=== PATIENT | female | born 1995 | race Caucasian/White ===

== ENCOUNTER 2017-03-17 20:21 | Emergency (ER) | payer OTHER ==
[2017-03-17 20:34] VITALS: BP 107/74
--- NOTE | 2017-03-17 20:47 | EDM.PDOC ---
ED HPI GENERAL MEDICAL PROBLEM - General Chief Complaint: Bite:Animal, Insect Stated Complaint: DOG BITE LT HAND Time Seen by Provider: 03/17/17 20:40 Source of Information: Reports: Patient History Limitations: Reports: No Limitations - History of Present Illness INITIAL COMMENTS - FREE TEXT/NARRATIVE: HISTORY AND PHYSICAL: History of present illness: [Pt comes to the ER complaining of a dog bite to her L hand. A neighbor's dog approached her outside of her home. When she put her hand toward it, it bit her hand and tried to drag her. Police were contacted at the time this occurred. She presents to the ER for evaluation about one hour after this occurred. Tetanus is up-to-date. She does not know the immunization history for the dog. She denies any other complaints and concerns. ] Review of systems: As per history of present illness and below otherwise all systems reviewed and negative. Past medical history: As per history of present illness and as reviewed below otherwise noncontributory. Surgical history: As per history of present illness and as reviewed below otherwise noncontributory. Social history: No reported history of drug or alcohol abuse. Family history: As per history of present illness and as reviewed below otherwise noncontributory. Physical exam: HEENT: Atraumatic, normocephalic. Extremities: Puncture wound to base of middle finger of R hand, ventral aspect. Puncture wound just lateral to the finger nail of her R index finger. Is otherwise atraumatic in appearance. Neurovascular unremarkable. Neuro: Awake, alert, oriented. Motor and sensory unremarkable throughout. Exam nonfocal. Impression: [dog bite] Plan: [Wound is cleansed with hibiclens and normal saline. Hemostasis obtained. Wounds dressed w/ TED and bandaid. Rx written for Augmentin 875 mg #14 sig one by mouth twice a day 0 refills. Wound care instructions are discussed with the patient. Patient verbalized understanding.] Definitive disposition and diagnosis as appropriate pending reevaluation and review of above. Left 3-Middle finger Pain Score (Numeric/FACES): 1 Left 2-Index finger Pain Score (Numeric/FACES): 1 - Related Data Allergies Allergy/AdvReac Type Severity Reaction Status Date / Time No Known Allergies Allergy Verified 03/17/17 20:33 Home Meds: Home Meds . [No Known Home Meds] 03/17/17 [History] Past Medical History - Past Health History Medical/Surgical History: Denies Medical/Surgical History Endocrine/Metabolic History: Reports: Hypothyroidism - Past Surgical History Head Surgeries/Procedures: Reports: None Social & Family History - Tobacco Use Smoking Status *Q: Former Smoker - Recreational Drug Use Recreational Drug Use: No Drug Use in Last 12 Months: No ED ROS GENERAL - Review of Systems Review Of Systems: ROS reveals no pertinent complaints other than HPI. ED EXAM, ANIMAL BITE - Physical Exam Exam: See Below Course - Vital Signs Last Recorded V/S: Last Vital Signs Temp 98.6 F 03/17/17 20:28 Pulse 90 03/17/17 20:28 Resp 17 03/17/17 20:28 BP 107/74 03/17/17 20:28 Pulse Ox 98 03/17/17 20:28 - Orders/Labs/Meds Orders: Active Orders 24 hr Category Date Time Status Bacitracin/Neomycin/Polymyxin [Triple Antibiotic Oint] Med 03/17/17 21:11 Once 1 gm TOP ONETIME ONE Meds: Medications Discontinued Medications Generic Name Dose Route Start Last Admin Trade Name Freq PRN Reason Stop Dose Admin Neomycin/Polymyxin/Bacitracin 1 gm 03/17/17 21:11 Triple Antibiotic Oint TOP 03/17/17 21:12 ONETIME ONE Departure - Departure Time of Disposition: 21:15 Disposition: Home, Self-Care 01 Condition: Good Clinical Impression: Dog bite of hand - Discharge Information Referrals: PCP,None [Primary Care Provider] - Forms: ED Department Discharge Additional Instructions: The following information is given to patients seen in the emergency department who are being discharged to home. This information is to outline your options for follow-up care. We provide all patients seen in our emergency department with a follow-up referral. The need for follow-up, as well as the timing and circumstances, are variable depending upon the specifics of your emergency department visit. If you don't have a primary care physician on staff, we will provide you with a referral. We always advise you to contact your personal physician following an emergency department visit to inform them of the circumstance of the visit and for follow-up with them and/or the need for any referrals to a consulting specialist. The emergency department will also refer you to a specialist when appropriate. This referral assures that you have the opportunity for follow-up care with a specialist. All of these measure are taken in an effort to provide you with optimal care, which includes your follow-up. Under all circumstances we always encourage you to contact your private physician who remains a resource for coordinating your care. When calling for follow-up care, please make the office aware that this follow-up is from your recent emergency room visit. If for any reason you are refused follow-up, please contact the [facility] emergency department at and asked to speak to the emergency department charge nurse. [facility] [address] [place] [id number] Follow-up with your primary medical doctor in 48-72 hours. Take antibiotics as prescribed. Return to ER as needed as discussed. - My Orders Last 24 Hours: My Active Orders 03/17/17 21:11 Bacitracin/Neomycin/Polymyxin [Triple Antibiotic Oint] 1 gm TOP ONETIME ONE - Assessment/Plan Last 24 Hours: My Active Orders 03/17/17 21:11 Bacitracin/Neomycin/Polymyxin [Triple Antibiotic Oint] 1 gm TOP ONETIME ONE
[2017-03-17] MEDS ORDERED: Bacitracin/Neomycin/Polymyxin B Oint 28.4 GM Tube TOP ONE (21:11)
[2017-03-17] MEDS ORDERED: Bacitracin Oint 1 GM U/D Packet TOP ONE (21:16)
== END 2017-03-17 21:25 | disposition home or self-care (01) ==
LOC: MW.ED 20:21
DX: S61.253A Open bite of left middle finger without damage to nail, initial encounter (principal); S61.251A Open bite of left index finger without damage to nail, initial encounter; W54.0XXA Bitten by dog, initial encounter; Z87.891 Personal history of nicotine dependence
CPT/HCPCS: 99282; 99283

== ENCOUNTER 2018-06-02 21:05 | Emergency (ER) | payer OTHER ==
--- NOTE | 2018-06-02 21:33 | EDM.PDOC ---
ED HPI GENERAL MEDICAL PROBLEM - General Chief Complaint: Genitourinary Problem Stated Complaint: PT HAS VAGINA PAIN Time Seen by Provider: 06/02/18 21:22 - History of Present Illness INITIAL COMMENTS - FREE TEXT/NARRATIVE: HISTORY AND PHYSICAL: History of present illness: Patient is a 22-year-old white female who presents with concern of pelvic pain that came on somewhat acutely she is on her period and does have history of dysmenorrhea but states this is different she is concerned about possible complication of her Mirena.Problems with this prior and has no concerns about sexually transmitted diseases nor has had any. She denies urinary tract signs or symptoms. Review of systems: As per history of present illness and below otherwise all systems reviewed and negative. Past medical history: As per history of present illness and as reviewed below otherwise noncontributory. Surgical history: As per history of present illness and as reviewed below otherwise noncontributory. Social history: No reported history of drug or alcohol abuse. Family history: As per history of present illness and as reviewed below otherwise noncontributory. Physical exam: HEENT: Atraumatic, normocephalic, pupils reactive, negative for conjunctival pallor or scleral icterus, mucous membranes moist, throat clear, neck supple, nontender, trachea midline. Lungs: Clear to auscultation, breath sounds equal bilaterally, chest nontender. Heart: S1S2, regular, negative for clicks, rubs, or JVD. Abdomen: Soft, nondistended, nonlocalized lower tenderness.. Negative for masses or hepatosplenomegaly. Negative for costovertebral tenderness. Pelvis: Stable nontender. Genitourinary: Deferred. Rectal: Deferred. Extremities: Atraumatic, negative for cords or calf pain. Neurovascular unremarkable. Neuro: Awake, alert, oriented. Cranial nerves II through XII unremarkable. Cerebellum unremarkable. Motor and sensory unremarkable throughout. Exam nonfocal. Diagnostics: CBC CMP hCG pelvic ultrasound Therapeutics: None Impression: #1 acute pelvic pain #2 history of dysmenorrhea Definitive disposition and diagnosis as appropriate pending reevaluation and review of above. abdominal Pain Score (Numeric/FACES): 9 - Related Data Allergies Allergy/AdvReac Type Severity Reaction Status Date / Time No Known Allergies Allergy Verified 06/02/18 21:24 Home Meds: Home Meds . [No Known Home Meds] 03/17/17 [History] Past Medical History - Past Health History Medical/Surgical History: Denies Medical/Surgical History HEENT History: Reports: None [employer] History: Reports: Other (See Below) Other [employer] History: with IUD x 2 years Psychiatric History: Reports: Anxiety Endocrine/Metabolic History: Reports: Hypothyroidism Other Endocrine/Metabolic History: supposed to be on medication for hypothyroidism but pt states she's not taking it - Past Surgical History Head Surgeries/Procedures: Reports: None HEENT Surgical History: Reports: Tonsillectomy Social & Family History - Family History Family Medical History: Noncontributory - Tobacco Use Smoking Status *Q: Never Smoker Second Hand Smoke Exposure: No - Caffeine Use Caffeine Use: Reports: Energy Drinks - Recreational Drug Use Recreational Drug Use: No ED ROS GENERAL - Review of Systems Review Of Systems: ROS reveals no pertinent complaints other than HPI. ED EXAM, GENERAL - Physical Exam Exam: See Below (See dictation) Course - Vital Signs Last Recorded V/S: Last Vital Signs Temp 37.2 C 06/02/18 21:12 Pulse 114 H 06/02/18 21:12 Resp 18 06/02/18 21:12 BP 119/80 06/02/18 21:12 Pulse Ox 95 06/02/18 21:12 - Orders/Labs/Meds Labs: Laboratory Tests 06/02/18 06/02/18 06/02/18 Range/Units 21:30 21:30 21:35 WBC 8.55 (4.0-11.0) K/uL RBC 4.55 (4.30-5.90) M/uL Hgb 13.5 (12.0-16.0) g/dL Hct 40.0 (36.0-46.0) % MCV 87.9 (80.0-98.0) fL MCH 29.7 (27.0-32.0) pg MCHC 33.8 (31.0-37.0) g/dL RDW Std Deviation 41.7 (28.0-62.0) fl RDW Coeff of Edwardo 13 (11.0-15.0) % Plt Count 206 (150-400) K/uL MPV 10.70 (7.40-12.00) fL Neut % (Auto) 58.2 (48.0-80.0) % Lymph % (Auto) 33.8 (16.0-40.0) % Sheridan % (Auto) 6.8 (0.0-15.0) % Eos % (Auto) 0.8 (0.0-7.0) % Baso % (Auto) 0.4 (0.0-1.5) % Neut # (Auto) 5.0 (1.4-5.7) K/uL Lymph # (Auto) 2.9 H (0.6-2.4) K/uL Sheridan # (Auto) 0.6 (0.0-0.8) K/uL Eos # (Auto) 0.1 (0.0-0.7) K/uL Baso # (Auto) 0.0 (0.0-0.1) K/uL Nucleated RBC % 0.0 /100WBC Nucleated RBCs # 0 K/uL Sodium (136-145) mmol/L Potassium (3.5-5.1) mmol/L Chloride (98-107) mmol/L Carbon Dioxide (21.0-32.0) mmol/L BUN (7.0-18.0) mg/dL Creatinine (0.6-1.0) mg/dL Est Cr Clr Drug Dosing mL/min Estimated GFR (MDRD) ml/min Glucose (74-106) mg/dL Calcium (8.5-10.1) mg/dL Total Bilirubin (0.2-1.0) mg/dL AST (15-37) IU/L ALT (14-63) IU/L Alkaline Phosphatase (46-116) U/L Total Protein (6.4-8.2) g/dL Albumin (3.4-5.0) g/dL Globulin (2.6-4.0) g/dL Albumin/Globulin Ratio (0.9-1.6) Urine Color YELLOW Urine Appearance HAZY Urine pH 5.0 (5.0-8.0) Ur Specific Edwards >= 1.030 (1.001-1.035) Urine Protein NEGATIVE (NEGATIVE) mg/dL Urine Glucose (UA) NEGATIVE (NEGATIVE) mg/dL Urine Ketones NEGATIVE (NEGATIVE) mg/dL Urine Occult Blood NEGATIVE (NEGATIVE) Urine Nitrite POSITIVE H (NEGATIVE) Urine Bilirubin NEGATIVE (NEGATIVE) Urine Urobilinogen 0.2 (<2.0) EU/dL Ur Leukocyte Esterase NEGATIVE (NEGATIVE) Urine RBC 0-3 (0-2/HPF) Urine WBC 6-8 (0-5/HPF) Ur Epithelial Cells MODERATE (NONE-FEW) Urine Bacteria 2+ H (NEGATIVE) Urine Mucus LIGHT (NONE-MOD) Urine HCG, Qual NEGATIVE (NEGATIVE) 06/02/18 Range/Units 21:35 WBC (4.0-11.0) K/uL RBC (4.30-5.90) M/uL Hgb (12.0-16.0) g/dL Hct (36.0-46.0) % MCV (80.0-98.0) fL MCH (27.0-32.0) pg MCHC (31.0-37.0) g/dL RDW Std Deviation (28.0-62.0) fl RDW Coeff of Edwardo (11.0-15.0) % Plt Count (150-400) K/uL MPV (7.40-12.00) fL Neut % (Auto) (48.0-80.0) % Lymph % (Auto) (16.0-40.0) % Sheridan % (Auto) (0.0-15.0) % Eos % (Auto) (0.0-7.0) % Baso % (Auto) (0.0-1.5) % Neut # (Auto) (1.4-5.7) K/uL Lymph # (Auto) (0.6-2.4) K/uL Sheridan # (Auto) (0.0-0.8) K/uL Eos # (Auto) (0.0-0.7) K/uL Baso # (Auto) (0.0-0.1) K/uL Nucleated RBC % /100WBC Nucleated RBCs # K/uL Sodium 142 (136-145) mmol/L Potassium 3.6 (3.5-5.1) mmol/L Chloride 106 (98-107) mmol/L Carbon Dioxide 27.4 (21.0-32.0) mmol/L BUN 12 (7.0-18.0) mg/dL Creatinine 0.9 (0.6-1.0) mg/dL Est Cr Clr Drug Dosing 75.24 mL/min Estimated GFR (MDRD) > 60.0 ml/min Glucose 102 (74-106) mg/dL Calcium 9.8 (8.5-10.1) mg/dL Total Bilirubin 0.3 (0.2-1.0) mg/dL AST 17 (15-37) IU/L ALT 18 (14-63) IU/L Alkaline Phosphatase 89 (46-116) U/L Total Protein 7.7 (6.4-8.2) g/dL Albumin 4.4 (3.4-5.0) g/dL Globulin 3.3 (2.6-4.0) g/dL Albumin/Globulin Ratio 1.3 (0.9-1.6) Urine Color Urine Appearance Urine pH (5.0-8.0) Ur Specific Edwards (1.001-1.035) Urine Protein (NEGATIVE) mg/dL Urine Glucose (UA) (NEGATIVE) mg/dL Urine Ketones (NEGATIVE) mg/dL Urine Occult Blood (NEGATIVE) Urine Nitrite (NEGATIVE) Urine Bilirubin (NEGATIVE) Urine Urobilinogen (<2.0) EU/dL Ur Leukocyte Esterase (NEGATIVE) Urine RBC (0-2/HPF) Urine WBC (0-5/HPF) Ur Epithelial Cells (NONE-FEW) Urine Bacteria (NEGATIVE) Urine Mucus (NONE-MOD) Urine HCG, Qual (NEGATIVE) Meds: Medications Discontinued Medications Generic Name Dose Route Start Last Admin Trade Name Chaoq PRN Reason Stop Dose Admin Ketorolac Tromethamine 60 mg 06/02/18 21:40 06/02/18 22:10 Toradol IM 06/02/18 21:41 60 mg ONETIME ONE Administration Departure - Departure Time of Disposition: 23:36 Disposition: Home, Self-Care 01 Condition: Good Clinical Impression: UTI, Urinary tract infectious disease, Cyst of ovary - Discharge Information Referrals: PCP,None [Primary Care Provider] - Forms: ED Department Discharge Additional Instructions: The following information is given to patients seen in the emergency department who are being discharged to home. This information is to outline your options for follow-up care. We provide all patients seen in our emergency department with a follow-up referral. The need for follow-up, as well as the timing and circumstances, are variable depending upon the specifics of your emergency department visit. If you don't have a primary care physician on staff, we will provide you with a referral. We always advise you to contact your personal physician following an emergency department visit to inform them of the circumstance of the visit and for follow-up with them and/or the need for any referrals to a consulting specialist. The emergency department will also refer you to a specialist when appropriate. This referral assures that you have the opportunity for followup care with a specialist. All of these measure are taken in an effort to provide you with optimal care, which includes your followup. Under all circumstances we always encourage you to contact your private physician who remains a resource for coordinating your care. When calling for followup care, please make the office aware that this follow-up is from your recent emergency room visit. If for any reason you are refused follow-up, please contact the [facility] emergency department at and asked to speak to the emergency department charge nurse. [facility] - Women's Health [address] [place] [phone] Hydrocodone Cipro as prescribed follow-up women's health above called scheduled appointment return as needed as discussed
[2018-06-02] MEDS ORDERED: Ketorolac 60 MG/2 ML SDV IM ONE (21:40)
[2018-06-02 22:09] LABS: CHLORIDE,CL 106 mmol/L (98-107); SODIUM,NA 142 mmol/L (136-145)
--- NOTE | 2018-06-02 23:30 | US ---
INDICATION: Lower abdominal pain TECHNIQUE: Ultrasound pelvis transabdominal and transvaginal for better assessment or to better visualize the endometrium. Real-time sonographic images with spectral and color Doppler imaging of the ovaries were obtained. COMPARISON: None FINDINGS: Uterus: 7.4 x 5.6 x 3.3 cm. Normal echotexture of the myometrium. No masses. Endometrium: Transvaginal imaging was performed to better evaluate the endometrium. There is an IUD within the uterus that appears appropriate in position. 3.5 mm in thickness. No sign of endometrial mass or fluid. Right ovary: 5.6 x 3.7 x 6.9 cm. Complex lesion on the right ovary measuring 6.5 x 3.4 by 4.5 cm. Normal arterial and venous blood flow. Left ovary: 2.9 x 1.8 x 2.0 cm. No ovarian or adnexal masses. Normal arterial and venous blood flow. Cul-de-sac: Small free fluid in the cul de sac and bilateral adnexa. IMPRESSION: No ovarian torsion. Complex lesion on the right ovary measuring greater than 6 cm in diameter. This likely represents a hemorrhagic cyst. A follow-up ultrasound in 5 weeks is recommended to assure resolution. Small free fluid in the cul de sac and bilateral adnexal may be physiologic. Dictated by Julieth Carranza MD @ Jun 02 2018 11:28PM Signed by Dr. Julieth Carranza @ Jun 02 2018 11:28PM
[2018-06-02 23:38] VITALS: BP 119/71
== END 2018-06-02 23:44 | disposition home or self-care (01) ==
LOC: MW.ED 21:05
DX: N39.0 Urinary tract infection, site not specified (principal); N83.201 Unspecified ovarian cyst, right side
CPT/HCPCS: 36415; 76856; 80053; 81001; 81025; 85025; 96372; 99284; J1885

== ENCOUNTER 2020-04-11 22:12 | Emergency (ER) | payer OTHER ==
--- NOTE | 2020-04-11 22:46 | EDM.PDOC ---
ED HPI GENERAL MEDICAL PROBLEM - General Chief Complaint: NEUROLOGY PHYSICIAN Problem Stated Complaint: OVARIAN CYST Time Seen by Provider: 04/11/20 22:39 - History of Present Illness INITIAL COMMENTS - FREE TEXT/NARRATIVE: History of present illness: [] 4-year-old female has gradual insidious onset of abdominal pain starting its ago. Tonight she was drinking alcohol and she suddenly had a worsening of her pain which is sharp and severe in the left lower quadrant. It is associated with whitish discharge that started yesterday. She does not have any other associated symptoms and the pain is worse when she moves. She prefers to sit up and lean forward to try to alleviate the pain. Review of systems: As per history of present illness and below otherwise all systems reviewed and negative. Past medical history: As per history of present illness and as reviewed below otherwise noncontributory. Surgical history: As per history of present illness and as reviewed below otherwise noncontributory. Social history: No reported history of drug or alcohol abuse. Family history: As per history of present illness and as reviewed below otherwise noncontributory. Physical exam: Constitutional - well developed, well-nourished and in no acute distress HEENT - normocephalic, no evidence of trauma - external nose and mouth normal - no mass in neck and no JVD - mucosae moist EYES - full EOM, PERRL, no icterus - no evidence of inflammation, injection, or drainage Respiratory - no respiratory distress, equal bilateral expansion, lungs clear to auscultation and no abnormal lung sounds Cardiovascular - Regular Rhythm with S1 and S2 appreciated and no murmur, gallop or rub. GI - abdomen soft without distension or organomegaly - normal bowel sounds - no guard or rebound -tender left lower quadrant in the extreme lower quadrant near the pelvis. exam-BUS normal-bimanual exam there is tenderness in both adnexa and there is cervical motion tenderness. There is a caseous white discharge. Musculoskeletal no gross deformity of long bones or joints - no tenderness, swelling or edema Neurologic - Alert and oriented times four - CN II-XII grossly intact - motor sensory and coordination symmetrically normal Psychiatric - appropriate mood and affect with normal thought content Hematologic - No petechiae or purpura - mucosa appropriate color and sclera not pale - normal nail bed color and refill Integument - no rash or evidence of trauma - normal turgor Diagnostics: [] Therapeutics: [] Impression: [] Plan: [] Definitive disposition and diagnosis as appropriate pending reevaluation and review of above. abdominal Pain Score (Numeric/FACES): 8 - Related Data Allergies Allergy/AdvReac Type Severity Reaction Status Date / Time No Known Allergies Allergy Verified 04/11/20 22:38 Home Meds: Home Meds Azithromycin [Zithromax] 1 gm PO DAILY #1 packet 04/12/20 [Rx] Past Medical History - Past Health History Medical/Surgical History: Denies Medical/Surgical History HEENT History: Reports: None NEUROLOGY PHYSICIAN History: Reports: Other (See Below) Other NEUROLOGY PHYSICIAN History: with IUD x 2 years Psychiatric History: Reports: Anxiety Endocrine/Metabolic History: Reports: Hypothyroidism Other Endocrine/Metabolic History: supposed to be on medication for hypothyroidism but pt states she's not taking it - Past Surgical History Head Surgeries/Procedures: Reports: None HEENT Surgical History: Reports: Tonsillectomy Social & Family History - Family History Family Medical History: No Pertinent Family History - Caffeine Use Caffeine Use: Reports: Energy Drinks ED ROS GENERAL - Review of Systems Review Of Systems: Comprehensive ROS is negative, except as noted in HPI. ED EXAM, GENERAL - Physical Exam Exam: See Below Free Text/Narrative:: My physical exam is in the HPI Course - Vital Signs Text/Narrative:: 12:24 the patient is completely better after ketorolac and antibiotics. Last Recorded V/S: Last Vital Signs Temp 36.1 C 04/11/20 22:31 Pulse 121 H 04/11/20 22:31 Resp 16 04/11/20 22:31 BP 126/81 04/11/20 22:31 Pulse Ox 96 04/11/20 22:31 - Orders/Labs/Meds Orders: Active Orders 24 hr Category Date Time Status CHLAMYDIA AND GONORRHEA BY [facility] Stat Lab 04/11/20 23:01 Received Labs: Laboratory Tests 04/11/20 04/11/20 04/11/20 Range/Units 22:39 22:39 23:01 WBC (4.0-11.0) K/uL RBC (4.30-5.90) M/uL Hgb (12.0-16.0) g/dL Hct (36.0-46.0) % MCV (80.0-98.0) fL MCH (27.0-32.0) pg MCHC (31.0-37.0) g/dL RDW Std Deviation (28.0-62.0) fl RDW Coeff of Edwardo (11.0-15.0) % Plt Count (150-400) K/uL MPV (7.40-12.00) fL Neut % (Auto) (48.0-80.0) % Lymph % (Auto) (16.0-40.0) % Upson % (Auto) (0.0-15.0) % Eos % (Auto) (0.0-7.0) % Baso % (Auto) (0.0-1.5) % Neut # (Auto) (1.4-5.7) K/uL Lymph # (Auto) (0.6-2.4) K/uL Upson # (Auto) (0.0-0.8) K/uL Eos # (Auto) (0.0-0.7) K/uL Baso # (Auto) (0.0-0.1) K/uL Nucleated RBC % /100WBC Nucleated RBCs # K/uL Sodium (136-145) mmol/L Potassium (3.5-5.1) mmol/L Chloride (98-107) mmol/L Carbon Dioxide (21.0-32.0) mmol/L BUN (7.0-18.0) mg/dL Creatinine (0.6-1.0) mg/dL Est Cr Clr Drug Dosing mL/min Estimated GFR (MDRD) ml/min Glucose (74-106) mg/dL Calcium (8.5-10.1) mg/dL Total Bilirubin (0.2-1.0) mg/dL AST (15-37) IU/L ALT (14-63) IU/L Alkaline Phosphatase (46-116) U/L Total Protein (6.4-8.2) g/dL Albumin (3.4-5.0) g/dL Globulin (2.6-4.0) g/dL Albumin/Globulin Ratio (0.9-1.6) Lipase (73-393) U/L Urine Color COLORLESS Urine Appearance CLEAR Urine pH 5.0 (5.0-8.0) Ur Specific [place] <= 1.005 (1.001-1.035) Urine Protein NEGATIVE (NEGATIVE) mg/dL Urine Glucose (UA) NEGATIVE (NEGATIVE) mg/dL Urine Ketones NEGATIVE (NEGATIVE) mg/dL Urine Occult Blood NEGATIVE (NEGATIVE) Urine Nitrite NEGATIVE (NEGATIVE) Urine Bilirubin NEGATIVE (NEGATIVE) Urine Urobilinogen 0.2 (<2.0) EU/dL Ur Leukocyte Esterase NEGATIVE (NEGATIVE) Urine HCG, Qual NEGATIVE (NEGATIVE) [place] species DNA NEGATIVE (NEGATIVE) Gardnerella DNA Probe NEGATIVE (NEGATIVE) Trichomonas DNA Probe NEGATIVE (NEGATIVE) 04/11/20 04/11/20 Range/Units 23:04 23:04 WBC 6.58 (4.0-11.0) K/uL RBC 4.58 (4.30-5.90) M/uL Hgb 13.7 (12.0-16.0) g/dL Hct 41.5 (36.0-46.0) % MCV 90.6 (80.0-98.0) fL MCH 29.9 (27.0-32.0) pg MCHC 33.0 (31.0-37.0) g/dL RDW Std Deviation 43.0 (28.0-62.0) fl RDW Coeff of Edwardo 13 (11.0-15.0) % Plt Count 195 (150-400) K/uL MPV 10.90 (7.40-12.00) fL Neut % (Auto) 67.9 (48.0-80.0) % Lymph % (Auto) 24.9 (16.0-40.0) % Upson % (Auto) 5.9 (0.0-15.0) % Eos % (Auto) 0.8 (0.0-7.0) % Baso % (Auto) 0.5 (0.0-1.5) % Neut # (Auto) 4.5 (1.4-5.7) K/uL Lymph # (Auto) 1.6 (0.6-2.4) K/uL Upson # (Auto) 0.4 (0.0-0.8) K/uL Eos # (Auto) 0.1 (0.0-0.7) K/uL Baso # (Auto) 0.0 (0.0-0.1) K/uL Nucleated RBC % 0.0 /100WBC Nucleated RBCs # 0 K/uL Sodium 142 (136-145) mmol/L Potassium 3.5 (3.5-5.1) mmol/L Chloride 107 (98-107) mmol/L Carbon Dioxide 22.1 (21.0-32.0) mmol/L BUN 11 (7.0-18.0) mg/dL Creatinine 0.8 (0.6-1.0) mg/dL Est Cr Clr Drug Dosing 83.23 mL/min Estimated GFR (MDRD) > 60.0 ml/min Glucose 98 (74-106) mg/dL Calcium 8.5 (8.5-10.1) mg/dL Total Bilirubin 0.2 (0.2-1.0) mg/dL AST 19 (15-37) IU/L ALT 25 (14-63) IU/L Alkaline Phosphatase 94 (46-116) U/L Total Protein 7.6 (6.4-8.2) g/dL Albumin 4.2 (3.4-5.0) g/dL Globulin 3.4 (2.6-4.0) g/dL Albumin/Globulin Ratio 1.2 (0.9-1.6) Lipase 82 (73-393) U/L Urine Color Urine Appearance Urine pH (5.0-8.0) Ur Specific [place] (1.001-1.035) Urine Protein (NEGATIVE) mg/dL Urine Glucose (UA) (NEGATIVE) mg/dL Urine Ketones (NEGATIVE) mg/dL Urine Occult Blood (NEGATIVE) Urine Nitrite (NEGATIVE) Urine Bilirubin (NEGATIVE) Urine Urobilinogen (<2.0) EU/dL Ur Leukocyte Esterase (NEGATIVE) Urine HCG, Qual (NEGATIVE) [place] species DNA (NEGATIVE) Gardnerella DNA Probe (NEGATIVE) Trichomonas DNA Probe (NEGATIVE) Meds: Medications Discontinued Medications Generic Name Dose Route Start Last Admin Trade Name Freq PRN Reason Stop Dose Admin Ceftriaxone Sodium 250 mg/ 0.9 mls @ 0.9 mls/sec 04/11/20 23:02 04/11/20 23:59 Lidocaine HCl IV 04/11/20 23:03 Not Given ONETIME ONE Ceftriaxone Sodium/Dextrose 1 50 mls @ 100 mls/hr 04/11/20 23:12 04/11/20 23:20 gm/ Premix IV 04/11/20 23:41 100 mls/hr ONETIME ONE Administration Ketorolac Tromethamine 15 mg 04/11/20 23:02 04/11/20 23:21 Toradol IVPUSH 04/11/20 23:03 15 mg ONETIME ONE Administration Departure - Departure Time of Disposition: 00:22 Disposition: Home, Self-Care 01 Condition: Good Clinical Impression: PID (acute pelvic inflammatory disease) - Discharge Information Instructions: Pelvic Inflammatory Disease, Qblo-oh-Behy Referrals: PCP,None [Primary Care Provider] - Forms: ED Department Discharge Additional Instructions: [facility] - Primary Care [address] [place] [id number] [address] The following information is given to patients seen in the emergency department who are being discharged to home. This information is to outline your options for follow-up care. We provide all patients seen in our emergency department with a follow-up referral. The need for follow-up, as well as the timing and circumstances, are variable depending upon the specifics of your emergency department visit. If you don't have a primary care physician on staff, we will provide you with a referral. We always advise you to contact your personal physician following an emergency department visit to inform them of the circumstance of the visit and for follow-up with them and/or the need for any referrals to a consulting specialist. The emergency department will also refer you to a specialist when appropriate. This referral assures that you have the opportunity for follow-up care with a specialist. All of these measure are taken in an effort to provide you with optimal care, which includes your follow-up. Under all circumstances we always encourage you to contact your private physician who remains a resource for coordinating your care. When calling for follow-up care, please make the office aware that this follow-up is from your recent emergency room visit. If for any reason you are refused follow-up, please contact the [facility] Emergency Department at and asked to speak to the emergency department charge nurse. Sepsis Event Note (ED) - Evaluation Sepsis Screening Result: No Definite Risk - Focused Exam Vital Signs: Vital Signs Temp Pulse Resp BP Pulse Ox 04/11/20 22:31 36.1 C 121 H 16 126/81 96 - My Orders Last 24 Hours: My Active Orders 04/11/20 23:01 CHLAMYDIA AND GONORRHEA BY [facility] Stat - Assessment/Plan Last 24 Hours: My Active Orders 04/11/20 23:01 CHLAMYDIA AND GONORRHEA BY [facility] Stat
[2020-04-11] MEDS ORDERED: Ketorolac 30 MG/ML SDV IVPUSH ONE (23:02)
[2020-04-11] MEDS ORDERED: cefTRIAXone 250 MG in Lidocaine 1% 0.9 ML IV ONE (23:02)
[2020-04-11] MEDS ORDERED: cefTRIAXone 1 GM in Premix Bag 1 BAG IV ONE (23:12)
[2020-04-11 23:37] LABS: BLOOD UREA NITROGEN,BUN 11 mg/dL (7.0-18.0); CARBON DIOXIDE,CO2 22.1 mmol/L (21.0-32.0); CHLORIDE,CL 107 mmol/L (98-107); GLUCOSE RANDOM 98 mg/dL (74-106); LIPASE 82 U/L (73-393); POTASSIUM,K 3.5 mmol/L (3.5-5.1); SODIUM,NA 142 mmol/L (136-145)
[2020-04-12 00:37] VITALS: BP 102/50; PULSE 100
[2020-04-14 11:03] LABS: C.TRACHOMATIS BY TMA Negative (Negative); N.GONORRHOEAE BY TMA Negative (Negative)
== END 2020-04-12 00:37 | disposition home or self-care (01) ==
LOC: MW.ED 22:12
DX: N73.9 Female pelvic inflammatory disease, unspecified (principal)
CPT/HCPCS: 36415; 80053; 81003; 81025; 83690; 85025; 87480; 87491; 87510; 87591; 87660; 96365; 96375; 99284; J0696; J1885; 99283

== ENCOUNTER 2020-04-12 19:56 | Emergency (ER) | payer OTHER ==
[2020-04-12] MEDS ORDERED: Ketorolac 60 MG/2 ML SDV IM ONE (20:22)
[2020-04-12] MEDS ORDERED: Acetaminophen/oxyCODONE 325-10 MG Tab PO ONE (20:24)
--- NOTE | 2020-04-12 20:28 | EDM.PDOC ---
ED HPI GENERAL MEDICAL PROBLEM - General Chief Complaint: LAUNDRY ROUTEMAN Problem Stated Complaint: POSSIBLE OVARIAN CYST Time Seen by Provider: 04/12/20 20:09 Source of Information: Reports: Patient History Limitations: Reports: No Limitations - History of Present Illness INITIAL COMMENTS - FREE TEXT/NARRATIVE: Presents reporting left pelvic pain. The patient states that she has had an ovarian cyst previously and this is the same pain. On that occasion she was seen for her pain and given medication which helped and the cyst resolved spontaneously. The patient was seen in this emergency room yesterday for her current pain. CBC and chemistries were unremarkable. Wet prep negative for yeast, BV and trichomoniasis. test negative. She was treated with Rocephin 1 g and ketorolac 15 mg. States that the pain in the left lower quadrant continues. She took Tylenol for it at home. She would like some pain medication and will follow up in [facility] tomorrow morning. No vomiting, diarrhea, vaginal bleeding or discharge or dysuria. Lower Abdomen Pain Score (Numeric/FACES): 8 - Related Data Allergies Allergy/AdvReac Type Severity Reaction Status Date / Time No Known Allergies Allergy Verified 04/12/20 20:07 Home Meds: Home Meds Azithromycin [Zithromax] 1 gm PO DAILY #1 packet 04/12/20 [Rx] Past Medical History - Past Health History Medical/Surgical History: Denies Medical/Surgical History HEENT History: Reports: None Cardiovascular History: Reports: None Respiratory History: Reports: None Gastrointestinal History: Reports: None Genitourinary History: Reports: None LAUNDRY ROUTEMAN History: Reports: Other (See Below) Other LAUNDRY ROUTEMAN History: with IUD x 2 years, previous ovarian cyst Musculoskeletal History: Reports: None Neurological History: Reports: None Psychiatric History: Reports: None, Anxiety Endocrine/Metabolic History: Reports: Hypothyroidism, Other (See Below) Other Endocrine/Metabolic History: Lorie's Hematologic History: Reports: None Immunologic History: Reports: None Oncologic (Cancer) History: Reports: None Dermatologic History: Reports: None - Infectious Disease History Infectious Disease History: Reports: None - Past Surgical History Head Surgeries/Procedures: Reports: None HEENT Surgical History: Reports: Tonsillectomy Endocrine Surgical History: Reports: None Social & Family History - Family History Family Medical History: No Pertinent Family History - Tobacco Use Tobacco Use Status *Q: Never Tobacco User - Caffeine Use Caffeine Use: Reports: Coffee, Energy Drinks - Recreational Drug Use Recreational Drug Use: No ED ROS GENERAL - Review of Systems Review Of Systems: Comprehensive ROS is negative, except as noted in HPI. ED EXAM, GI/ABD - Physical Exam Exam: See Below Exam Limited By: No Limitations General Appearance: Alert, No Apparent Distress Ears: Normal External Exam Nose: Normal Inspection Throat/Mouth: Normal Inspection Head: Atraumatic, Normocephalic Neck: Normal Inspection Respiratory/Chest: No Respiratory Distress, Lungs Clear, Normal Breath Sounds Cardiovascular: Normal Peripheral Pulses, Regular Rate, Rhythm, No Murmur GI/Abdominal Exam: Normal Bowel Sounds, No Distention, Other (Left pelvic tenderness) Back Exam: Normal Inspection Extremities: Normal Inspection, Normal Range of Motion Neurological: Alert, Oriented, Normal Cognition Psychiatric: Normal Affect, Normal Mood Skin Exam: Warm, Dry, Intact, Normal Color, No Rash Lymphatic: No Adenopathy Course - Vital Signs Last Recorded V/S: Last Vital Signs Temp 36.4 C 04/12/20 20:04 Pulse 100 04/12/20 20:04 Resp 16 04/12/20 20:04 BP 120/69 04/12/20 20:04 Pulse Ox 98 04/12/20 20:04 - Orders/Labs/Meds Meds: Medications Discontinued Medications Generic Name Dose Route Start Last Admin Trade Name Hermann PRN Reason Stop Dose Admin Ketorolac Tromethamine 60 mg 04/12/20 20:22 Toradol IM 04/12/20 20:23 ONETIME ONE Oxycodone/Acetaminophen 1 tab 04/12/20 20:24 Percocet 325-10 Mg PO 04/12/20 20:25 ONETIME ONE Departure - Departure Time of Disposition: 20:38 Disposition: Home, Self-Care 01 Condition: Good Clinical Impression: Pelvic pain - Discharge Information Referrals: PCP,None [Primary Care Provider] - Daniel Ignacio MD [Physician] - Forms: ED Department Discharge Additional Instructions: The following information is given to patients seen in the emergency department who are being discharged to home. This information is to outline your options for follow-up care. We provide all patients seen in our emergency department with a follow-up referral. The need for follow-up, as well as the timing and circumstances, are variable depending upon the specifics of your emergency department visit. If you don't have a primary care physician on staff, we will provide you with a referral. We always advise you to contact your personal physician following an emergency department visit to inform them of the circumstance of the visit and for follow-up with them and/or the need for any referrals to a consulting sp ecialist. The emergency department will also refer you to a specialist when appropriate. This referral assures that you have the opportunity for follow-up care with a specialist. All of these measure are taken in an effort to provide you with optimal care, which includes your follow-up. Under all circumstances we always encourage you to contact your private physician who remains a resource for coordinating your care. When calling for follow-up care, please make the office aware that this follow-up is from your recent emergency room visit. If for any reason you are refused follow-up, please contact the [facility] Emergency Department at and asked to speak to the emergency department charge nurse. 1. Toradol: may take every 6-8 hours with food. Do NOT take tonight as you have had a dose of this medication in the ER. 2. Hydrocodone: 1-2 tabs every 6-8 hours as needed for pain. No driving or operating machinery 3. Follow-up in [facility]. Call the number above tomorrow morning. The [facility] has been alerted that you were seen in the emergency room this weekend. Sepsis Event Note (ED) - Evaluation Sepsis Screening Result: No Definite Risk - Focused Exam Vital Signs: Vital Signs Temp Pulse Resp BP Pulse Ox 04/12/20 20:04 36.4 C 100 16 120/69 98
[2020-04-12 21:01] VITALS: BP 96/66; PULSE 79
== END 2020-04-12 21:01 | disposition home or self-care (01) ==
LOC: MW.ED 19:56
DX: R10.2 Pelvic and perineal pain (principal)
CPT/HCPCS: 96372; 99283; A9270; J1885

== ENCOUNTER 2020-06-05 12:00 | Emergency (ER) | payer OTHER ==
[2020-06-05] MEDS ORDERED: LORazepam 2 MG/ML SDV IVPUSH ONE (12:19)
[2020-06-05] MEDS ORDERED: Lactated Ringers 1,000 ML IV ONE (12:19)
[2020-06-05 14:22] LABS: BLOOD UREA NITROGEN,BUN 10 mg/dL (7.0-18.0); CARBON DIOXIDE,CO2 26.8 mmol/L (21.0-32.0); CHLORIDE,CL 105 mmol/L (98-107); GLUCOSE RANDOM 91 mg/dL (74-106); POTASSIUM,K 3.8 mmol/L (3.5-5.1); SODIUM,NA 143 mmol/L (136-145)
[2020-06-05] MEDS ORDERED: Ketorolac 30 MG/ML SDV IVPUSH ONE (14:40)
[2020-06-05] MEDS ORDERED: Dexamethasone 10 MG/ML SDV IVPUSH ONE (14:41)
[2020-06-05] MEDS ORDERED: Prochlorperazine 10 MG/2 ML SDV IVPUSH ONE (14:41)
[2020-06-05] MEDS ORDERED: diphenhydrAMINE 50 MG/ML SDV IVPUSH ONE (14:41)
--- NOTE | 2020-06-05 15:01 | CT ---
INDICATION: Headache. TECHNIQUE: CT head without contrast. COMPARISON: None. FINDINGS: CSF spaces: Within normal limits for age. Brain parenchyma and extra-axial spaces: The marion-white differentiation is normal. No sign of mass, hemorrhage, or midline shift. No extra-axial fluid collection. Skull base and calvarium: The visualized paranasal sinuses and mastoid air cells demonstrate no acute or significant findings. The visualized orbits are grossly unremarkable. No skull fractures. IMPRESSION: Unremarkable noncontrast head CT. Please note that all CT scans at this facility use dose modulation, iterative reconstruction, and/or weight-based dosing when appropriate to reduce radiation dose to as low as reasonably achievable. Dictated by Alex Price MD @ Jun 05 2020 2:59PM Signed by Dr. Alex Price @ Jun 05 2020 3:00PM
--- NOTE | 2020-06-05 16:55 | EDM.PDOC ---
ED HPI GENERAL MEDICAL PROBLEM - General Chief Complaint: Neuro Symptoms/Deficits Stated Complaint: lft side going numb Time Seen by Provider: 06/05/20 12:19 - History of Present Illness INITIAL COMMENTS - FREE TEXT/NARRATIVE: CHIEF COMPLAINT(S): Left-sided numbness HISTORY OF PRESENT ILLNESS: This is a 24-year-old woman in with a past medical history of migraine headache who comes to the emergency department with a chief complaint of left-sided numbness. The patient states that approximately 20 hours prior to arrival she started to notice that the left arm and left leg had numbness. She states that she became anxious and came to the emergency department. She states that she was at work when this happened. She denies any weakness, slurring of speech, trouble swallowing, trouble walking, trouble speaking. She states that she does not have a family history of stroke and does not have any personal history of stroke. She denies any history of clotting disorders. She states that she does have a mild headache located throughout her head rated 2-3 out of 10 not associated with any photosensitivity or phono sensitivity. She states that she has had this left-sided numbness with her migraines in the past. She denies any Isaías or loss of consciousness. She states that she has been experiencing more stress lately and has a history of PTSD and may have been triggered recently. She dates that this is normally when she has her migraine headaches. REVIEW OF SYSTEMS: Constitutional: Denies fever, chills. Eyes: Denies eye pain Ears, Nose, Mouth, & Throat: Denies earache Cardiovascular: Denies chest pain Respiratory: Denies shortness of breath Gastrointestinal: Denies Nausea, vomiting, diarrhea, hematochezia. Genitourinary: Denies hematuria Skin:Denies a rash Neurological: Positive for left-sided numbness. Denies any blurred vision, double vision, trouble walking, trouble speaking, trouble swallowing Psychiatric: Positive for PTSD PAST MEDICAL HISTORY: As per history of present illness and as reviewed below otherwise noncontributory. SURGICAL HISTORY: As per history of present illness and as reviewed below otherwise noncontributory. SOCIAL HISTORY: As per history of present illness and as reviewed below otherwise noncontributory. FAMILY HISTORY: As per history of present illness and as reviewed below otherwise noncontributory. EXAMINATION OF ORGAN SYSTEMS/BODY AREAS: Constitutional: Blood pressure was 148/91, heart rate 102, respiratory 16 with an oxygen saturation 98% on room air. Temperature 37 point General: Young woman who is tearful Psychiatric: Appears anxious Eyes: No scleral icterus or conjunctival erythema pupils are equal round reactive to light. Extraocular movements intact. No vertical horizontal nystagmus. ENMT: Moist mucous membranes. No pharyngeal erythema tongue protrudes midline. Facies were symmetrical. Cardiovascular: Regular, rate, and rhythm. No gallops, murmurs, or rubs. Bilateral upper extremity pulses symmetric and intact. No peripheral edema. No JVD. Respiratory: Lungs clear to auscultation bilaterally. No wheezes, rales, or rhonchi. Gastrointestinal: Soft, non-tender, non-distended. Normoactive bowel sounds Genitourinary: No suprapubic tenderness Musculoskeletal: Normal range of motion. Skin: No lesions or abrasions. Neurological: AOx4. CN grossly intact. Stregth 5/5 in bilateral upper and lower extremity. Sensation is intact bilaterally in upper and lower extremity. Gait appears normal. Finger to nose, heel to gibson, rapid alternating movements intact. MEDICAL DECISION MAKING AND COURSE IN THE ED WITH INTERPRETATION/REVIEW OF DIAGNOSTIC STUDIES: This is a 24-year-old woman with a past medical history of migraine headache and prior history of PTSD who comes to the emergency department with left-sided numbness and mild headache who has a normal neurological examination. At this time I do not suspect a stroke however will obtain a CT head without contrast given the headache to evaluate for any intracranial hemorrhage given the onset less than 20 minutes ago. Will obtain basic labs and hCG. We will provide the patient with 1 L of normal saline. I do believe this is secondary to her migraine headache as this is similar to her prior migraine headaches in the past. We will wait to treat until after CT is done. Laboratory: CBC is unremarkable. CMP is unremarkable. hCG is negative. Twelve-lead EKG interpreted by myself. Normal sinus rhythm at a rate of 60beats per minute. Normal axis. W[place] interval is 128ms. QRS duration is 91ms. ST segments are normal without elevations or depressions. No Q waves present. Hypertrophy not noted. No priors. Interpretation: Normal sinus rhythm The radiological images were viewed by myself along with reading the report from the radiologist. CT head without contrast does not reveal any acute intracranial abnormality. After imaging I did reevaluate the patient. She states that she was nauseous and did have some worsening headache. Therefore I provided the patient with Toradol, Compazine and Benadryl. I did inform her of the results. I discussed that we would reevaluate after treatment. We will reevaluate the patient. After period of observation the patient reported that her headache improved. I did discuss her at this time I do believe is secondary to migraine. I discussed with her the use of [id number] Tylenol and Motrin and to rest. I discussed that if she were to have any new or worsening symptoms she needs to return to the emergency department. She was amenable discharge at this time and had no further questions. DISPOSITION: The patient was discharged home in stable condition. The patient will follow up with her PCP within 2 to 3 days CONDITION: Fair PROCEDURES: None FINAL IMPRESSION(S)/DIAGNOSES: 1. Acute migraine headache with aura Jad Chen M.D. - Related Data Allergies Allergy/AdvReac Type Severity Reaction Status Date / Time No Known Allergies Allergy Verified 06/05/20 12:12 Home Meds: Home Meds . 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, previous ovarian cyst Musculoskeletal History: Reports: None Neurological History: Reports: None Psychiatric History: Reports: None, Anxiety Endocrine/Metabolic History: Reports: Hypothyroidism, Other (See Below) Other Endocrine/Metabolic History: Lorie's Hematologic History: Reports: None Immunologic History: Reports: None Oncologic (Cancer) History: Reports: None Dermatologic History: Reports: None - Infectious Disease History Infectious Disease History: Reports: None - Past Surgical History Head Surgeries/Procedures: Reports: None HEENT Surgical History: Reports: Tonsillectomy Endocrine Surgical History: Reports: None Social & Family History - Family History Family Medical History: No Pertinent Family History - Tobacco Use Tobacco Use Status *Q: Never Tobacco User - Caffeine Use Caffeine Use: Reports: Coffee, Energy Drinks - Recreational Drug Use Recreational Drug Use: No ED ROS GENERAL - Review of Systems Review Of Systems: See Below ED EXAM, GENERAL - Physical Exam Exam: See Below Course - Vital Signs Last Recorded V/S: Last Vital Signs Temp 37.5 C 06/05/20 12:09 Pulse 72 06/05/20 17:20 Resp 18 06/05/20 17:20 BP 104/83 06/05/20 17:20 Pulse Ox 99 06/05/20 17:20 - Orders/Labs/Meds Labs: Laboratory Tests 06/05/20 06/05/20 06/05/20 Range/Units 13:25 13:25 13:25 WBC 5.10 (4.0-11.0) K/uL RBC 4.36 (4.30-5.90) M/uL Hgb 13.3 (12.0-16.0) g/dL Hct 39.6 (36.0-46.0) % MCV 90.8 (80.0-98.0) fL MCH 30.5 (27.0-32.0) pg MCHC 33.6 (31.0-37.0) g/dL RDW Std Deviation 42.3 (28.0-62.0) fl RDW Coeff of Edwardo 13 (11.0-15.0) % Plt Count 151 (150-400) K/uL MPV 11.70 (7.40-12.00) fL Neut % (Auto) 58.4 (48.0-80.0) % Lymph % (Auto) 34.5 (16.0-40.0) % Mower % (Auto) 5.1 (0.0-15.0) % Eos % (Auto) 1.6 (0.0-7.0) % Baso % (Auto) 0.4 (0.0-1.5) % Neut # (Auto) 3.0 (1.4-5.7) K/uL Lymph # (Auto) 1.8 (0.6-2.4) K/uL Mower # (Auto) 0.3 (0.0-0.8) K/uL Eos # (Auto) 0.1 (0.0-0.7) K/uL Baso # (Auto) 0.0 (0.0-0.1) K/uL Nucleated RBC % 0.0 /100WBC Nucleated RBCs # 0 K/uL Sodium 143 (136-145) mmol/L Potassium 3.8 (3.5-5.1) mmol/L Chloride 105 (98-107) mmol/L Carbon Dioxide 26.8 (21.0-32.0) mmol/L BUN 10 (7.0-18.0) mg/dL Creatinine 0.8 (0.6-1.0) mg/dL Est Cr Clr Drug Dosing 83.23 mL/min Estimated GFR (MDRD) > 60.0 ml/min Glucose 91 (74-106) mg/dL Calcium 8.8 (8.5-10.1) mg/dL Total Bilirubin 0.1 L (0.2-1.0) mg/dL AST 17 (15-37) IU/L ALT 16 (14-63) IU/L Alkaline Phosphatase 68 (46-116) U/L Total Protein 7.0 (6.4-8.2) g/dL Albumin 3.9 (3.4-5.0) g/dL Globulin 3.1 (2.6-4.0) g/dL Albumin/Globulin Ratio 1.3 (0.9-1.6) HCG, Qual NEGATIVE (NEG) Meds: Medications Discontinued Medications Generic Name Dose Route Start Last Admin Trade Name Freq PRN Reason Stop Dose Admin Dexamethasone 10 mg 06/05/20 14:41 06/05/20 15:00 Decadron IVPUSH 06/05/20 14:42 10 mg ONETIME ONE Administration Diphenhydramine HCl 50 mg 06/05/20 14:41 06/05/20 15:00 Benadryl IVPUSH 06/05/20 14:42 50 mg ONETIME ONE Administration Lactated Ringer's 1,000 mls @ 999 mls/hr 06/05/20 12:19 06/05/20 13:26 Ringers, Lactated IV 06/05/20 13:19 999 mls/hr .BOLUS ONE Administration Ketorolac Tromethamine 15 mg 06/05/20 14:40 06/05/20 15:00 Toradol IVPUSH 06/05/20 14:41 15 mg ONETIME ONE Administration Lorazepam 1 mg 06/05/20 12:19 06/05/20 13:24 Ativan IVPUSH 06/05/20 12:20 1 mg ONETIME ONE Administration Prochlorperazine Edisylate 5 mg 06/05/20 14:41 06/05/20 14:59 Compazine IVPUSH 06/05/20 14:42 5 mg ONETIME ONE Administration Departure - Departure Time of Disposition: 16:53 Disposition: Home, Self-Care 01 Condition: Fair Clinical Impression: Migraine aura, persistent Qualifiers: Status migrainosus presence: with status migrainosus Intractability: not intractable Qualified Code(s): G43.501 - Persistent migraine aura without cerebral infarction, not intractable, with status migrainosus - Discharge Information *PRESCRIPTION DRUG MONITORING PROGRAM REVIEWED*: No *COPY OF PRESCRIPTION DRUG MONITORING REPORT IN PATIENT JOSE MARIA: No Instructions: Recurrent Migraine Headache, [id number] Referrals: Marisabel Hein NP [Primary Care Provider] - Forms: ED Department Discharge Additional Instructions: Your evaluated today on an emergent basis. I do believe you are experiencing a migraine. It is reassuring that your headache is improving. I continue to recommend rest, Tylenol, and ibuprofen. Please follow-up with your primary care physician for further management of your migraine and possible referral to neurology. If you have any new or worsening symptoms such as worsening headache, vomiting, or weakness please return to the emergency department. [facility] [address] [place] [address] [place] [address] The patient is informed of any results of their evaluation and diagnostic workup and all questions are answered. They are given discharge instructions and return precautions. The patient is stable for discharge. The patient states they understand and agree with the plan and that they will return if their symptoms get worse or if they have any new concerns. The following information is given to patients seen in the emergency department who are being discharged to home. This information is to outline your options for follow-up care. We provide all patients seen in our emergency department with a follow-up referral. The need for follow-up, as well as the timing and circumstances, are variable depending upon the specifics of your emergency department visit. If you don't have a primary care physician on staff, we will provide you with a referral. We always advise you to contact your personal physician following an emergency department visit to inform them of the circumstance of the visit and for follow-up with them and/or the need for any referrals to a consulting specialist. The emergency department will also refer you to a specialist when appropriate. This referral assures that you have the opportunity for follow-up care with a specialist. All of these measure are taken in an effort to provide you with optimal care, which includes your follow-up. Under all circumstances we always encourage you to contact your private physician who remains a resource for coordinating your care. When calling for follow-up care, please make the office aware that this follow-up is from your recent emergency room visit. If for any reason you are refused follow-up, please contact the [facility] Emergency Department at and asked to speak to the emergency department charge nurse. Sepsis Event Note (ED) - Evaluation Sepsis Screening Result: No Definite Risk - Focused Exam Vital Signs: Vital Signs Temp Pulse Resp BP Pulse Ox 06/05/20 17:20 72 18 104/83 99 06/05/20 12:09 37.5 C 102 H 16 148/91 H 98
[2020-06-05 17:48] VITALS: BP 104/83; PULSE 72
== END 2020-06-05 17:20 | disposition home or self-care (01) ==
LOC: MW.ED 12:00
DX: G43.501 Persistent migraine aura without cerebral infarction, not intractable, with status migrainosus (principal)
CPT/HCPCS: 36415; 70450; 80053; 82962; 84703; 85025; 93005; 96374; 96375; 99284; J0780; J1100; J1200; J1885; J2060; J7120; 93010; 99283

== ENCOUNTER 2021-04-05 21:03 | Emergency (ER) | payer OTHER ==
[2021-04-05 22:10] VITALS: BP 123/58; PULSE 69
[2021-04-05] MEDS ORDERED: Sodium Chloride 0.9% 1,000 ML IV ONE (23:06)
[2021-04-05] MEDS ORDERED: Sodium Chloride 0.9% 2.5 ML Syringe FLUSH PRN (23:06)
[2021-04-05] MEDS ORDERED: Sodium Chloride 0.9% 10 ML Syringe FLUSH PRN (23:06)
[2021-04-06] MEDS ORDERED: Ketorolac 15 MG/ML SDV IVPUSH STA (00:38)
--- NOTE | 2021-04-06 00:43 | EDM.PDOC ---
ED HPI GENERAL MEDICAL PROBLEM - General Chief Complaint: Abdominal Pain Stated Complaint: abdominal pain,dizzy,numbness Time Seen by Provider: 04/06/21 00:38 - History of Present Illness INITIAL COMMENTS - FREE TEXT/NARRATIVE: HISTORY AND PHYSICAL: History of present illness: Is a healthy 25-year-old female who presents ER today complaining of left lower quadrant abdominal discomfort that started earlier today. Patient reports that she had similar pain in the past that was secondary to ovarian cysts. Patient denies any recent fevers, shakes, chills, nausea, vomiting, diarrhea, dysuria, frequency, urgency, chest pain, shortness of breath. Patient has a hematuria. Patient denies any vaginal discharge. Patient reports that prior to coming she took out her control and since she is taken ouch her symptoms of si gnificantly improved and is almost pain-free at this time. Patient reports she been tolerating p.o. solids and liquids well. Patient reports that her menses have been extremely irregular recently. Review of systems: As per history of present illness and below otherwise all systems reviewed and negative. Past medical history: As per history of present illness and as reviewed below otherwise n oncontributory. Surgical history: As per history of present illness and as reviewed below otherwise noncontributory. Social history: No reported history of drug abuse. Family history: As per history of present illness and as reviewed below otherwise noncontributory. Physical exam: This patient was seen and evaluated during the 2019 SARS-CoV-2 novel coronavirus pandemic period. Community viral transmission is ongoing at time of this encounter and the emergency department is operating under pandemic response procedures. Constitutional: Patient is oriented to person, place, and time. Appears well- developed and well-nourished. No distress. HEENT: Moist mucous membranes Head: Normocephalic and atraumatic Eyes: Right eye exhibits no discharge. Left eye exhibits no discharge. No scleral icterus Neck: Normal range of motion. No tracheal deviation present. Cardiovascular: Normal rate and regular rhythm. Pulmonary: Effort normal, no respiratory distress. Abd: Soft, nondistended, no rebound/guarding, no psoas or obturator signs, no tenderness at Mcberney's point, no Fisher's sign. Pt does not present with an exam that would be consistent with an acute surgical abdomen at this time. Mild tenderness palpation left lower quadrant Musculoskeletal: Normal range of motion Neurologic: Alert and oriented to person, place and time. Skin: [place], warm and dry. Psychiatric: Normal mood and affect. Behavior is normal. Judgment and thought content normal. Nursing note and vital signs have been reviewed Patient is nontoxic-appearing. Patient is laughing and in good spirits and does not appear to be uncomfortable with deep palpation to her abdomen. Patient does not have any peritoneal findings. Diagnostics: CBC, CMP, lipase, urinalysis unremarkable. Urine test negative. Therapeutics: NSS x1 L, Toradol 30 mg IV Assessment and plan: 25-year-old female who presents ER today complaining of lower quadrant abdominal pain on the left side in the suprapubic region. Patient reports the pain that she is experiencing today is similar to ovarian cyst pain that she has been diagnosed with in the past. In the ED, the patient will be given Toradol IV. Patient feels extremely comfortable going home at this time. Patient reports that she took out her control and states she is taken out she reports that she feels much better. Patient's friend who is here at bedside reports that she has noticed a considerable improvement in patient's discomfort as well ever since she is taken out her control. Patient be discharged home with a prescription for ibuprofen 600 mg to take as needed. Reassessment at the time of disposition demonstrates that the patient is in no acute distress. The patient has remained stable throughout the entire ED visit and is without objective evidence for acute process requiring urgent intervention or hospitalization. The patient is stable for discharge, counseling is provided as documented above, discussed symptomatic treatment and specific conditions for return. I have spoken with the patient/caregiver and discussed todays findings, in addition to providing specific details for the plan of care. Questions are answered and there is agreement with the plan. Definitive disposition and diagnosis as appropriate pending reevaluation and review of above. Abdominal Pain Score (Numeric/FACES): 6 - Related Data Allergies Allergy/AdvReac Type Severity Reaction Status Date / Time No Known Allergies Allergy Verified 04/05/21 22:10 Home Meds: Home Meds Ibuprofen 600 mg PO Q6HR PRN #30 tablet 04/06/21 [Rx] Past Medical History - Past Health History Medical/Surgical History: Denies Medical/Surgical History HEENT History: Reports: None Cardiovascular History: Reports: None Respiratory History: Reports: None Gastrointestinal History: Reports: None Genitourinary History: Reports: None GLUE SPRAYER History: Reports: Other (See Below) Other GLUE SPRAYER History: with IUD x 2 years, previous ovarian cyst Musculoskeletal History: Reports: None Neurological History: Reports: None Psychiatric History: Reports: None, Anxiety Endocrine/Metabolic History: Reports: Hypothyroidism, Other (See Below) Other Endocrine/Metabolic History: Lorie's Hematologic History: Reports: None Immunologic History: Reports: None Oncologic (Cancer) History: Reports: None Dermatologic History: Reports: None - Infectious Disease History Infectious Disease History: Reports: None - Past Surgical History Head Surgeries/Procedures: Reports: None HEENT Surgical History: Reports: Tonsillectomy Endocrine Surgical History: Reports: None Social & Family History - Family History Family Medical History: No Pertinent Family History - Tobacco Use Second Hand Smoke Exposure: No - Caffeine Use Caffeine Use: Reports: None - Recreational Drug Use Recreational Drug Use: No ED ROS GENERAL - Review of Systems Review Of Systems: See Below ED EXAM, GENERAL - Physical Exam Exam: See Below Course - Vital Signs Last Recorded V/S: Last Vital Signs Temp 97.4 F 04/05/21 22:07 Pulse 69 04/05/21 22:07 Resp 20 04/05/21 22:07 BP 123/58 L 04/05/21 22:07 Pulse Ox 99 04/05/21 22:07 - Orders/Labs/Meds Orders: Active Orders 24 hr Category Date Time Status COMPREHENSIVE METABOLIC PN,CMP [CHEM] Stat Lab 04/05/21 23:50 Received LIPASE [CHEM] Stat Lab 04/05/21 23:50 Received Ketorolac [Toradol] Med 04/06/21 00:38 Stat 30 mg IVPUSH Q6H STA Sodium Chloride 0.9% [Saline Flush] Med 04/05/21 23:06 Active 10 ml FLUSH ASDIRECTED PRN Sodium Chloride 0.9% [Saline Flush] Med 04/05/21 23:06 Active 2.5 ml FLUSH ASDIRECTED PRN Saline Lock Insert [OM.PC] Stat Oth 04/05/21 23:06 Ordered Medication Orders Sodium Chloride (Sodium Chloride 0.9% 10 Ml Syringe) 10 ml FLUSH ASDIRECTED PRN PRN Reason: Keep Vein Open Last Admin: 04/05/21 23:49 Dose: 10 ml Documented by: TIMBO Sodium Chloride (Sodium Chloride 0.9% 2.5 Ml Syringe) 2.5 ml FLUSH ASDIRECTED PRN PRN Reason: Keep Vein Open Last Admin: 04/05/21 23:49 Dose: 2.5 ml Documented by: TIMBO Labs: Laboratory Tests 04/05/21 04/05/21 04/05/21 Range/Units 22:15 22:15 23:50 WBC 5.77 (4.0-11.0) K/uL RBC 4.44 (4.30-5.90) M/uL Hgb 13.1 (12.0-16.0) g/dL Hct 39.0 (36.0-46.0) % MCV 87.8 (80.0-98.0) fL MCH 29.5 (27.0-32.0) pg MCHC 33.6 (31.0-37.0) g/dL RDW Std Deviation 39.5 (28.0-62.0) fl RDW Coeff of Edwardo 12 (11.0-15.0) % Plt Count 174 (150-400) K/uL MPV 11.40 (7.40-12.00) fL Neut % (Auto) 45.2 L (48.0-80.0) % Lymph % (Auto) 46.3 H (16.0-40.0) % [place] % (Auto) 6.8 (0.0-15.0) % Eos % (Auto) 1.2 (0.0-7.0) % Baso % (Auto) 0.5 (0.0-1.5) % Neut # (Auto) 2.6 (1.4-5.7) K/uL Lymph # (Auto) 2.7 H (0.6-2.4) K/uL [place] # (Auto) 0.4 (0.0-0.8) K/uL Eos # (Auto) 0.1 (0.0-0.7) K/uL Baso # (Auto) 0.0 (0.0-0.1) K/uL Urine Color YELLOW Urine Appearance CLEAR Urine pH 6.0 (5.0-8.0) Ur Specific [place] >= 1.030 (1.001-1.035) Urine Protein NEGATIVE (NEGATIVE) mg/dL Urine Glucose (UA) NEGATIVE (NEGATIVE) mg/dL Urine Ketones 15 H (NEGATIVE) mg/dL Urine Occult Blood TRACE-INTACT H (NEGATIVE) Urine Nitrite NEGATIVE (NEGATIVE) Urine Bilirubin NEGATIVE (NEGATIVE) Urine Urobilinogen 0.2 (<2.0) EU/dL Ur Leukocyte Esterase NEGATIVE (NEGATIVE) Urine RBC 0-3 (0-2/HPF) Urine WBC 0-2 (0-5/HPF) Ur Epithelial Cells MODERATE (NONE-FEW) Urine Bacteria FEW (NEGATIVE) Urine Mucus LIGHT (NONE-MOD) Urine HCG, Qual NEGATIVE (NEGATIVE) Meds: Medications Generic Name Dose Route Start Last Admin Trade Name Freq PRN Reason Stop Dose Admin Sodium Chloride 10 ml 04/05/21 23:06 04/05/21 23:49 Sodium Chloride 0.9% 10 Ml Syringe FLUSH 10 ml ASDIRECTED PRN Administration Keep Vein Open Sodium Chloride 2.5 ml 04/05/21 23:06 04/05/21 23:49 Sodium Chloride 0.9% 2.5 Ml Syringe FLUSH 2.5 ml ASDIRECTED PRN Administration Keep Vein Open Discontinued Medications Generic Name Dose Route Start Last Admin Trade Name Freq PRN Reason Stop Dose Admin Sodium Chloride 1,000 mls @ 999 mls/hr 04/05/21 23:06 04/05/21 23:49 Normal Saline IV 04/06/21 00:06 999 mls/hr .Bolus ONE Administration Departure - Departure Time of Disposition: 00:41 Disposition: Home, Self-Care 01 Condition: Good Clinical Impression: Pelvic pain, Ovarian cyst - Discharge Information Instructions: Pelvic Pain, Female, [id number], Ovarian Cyst, [id number] Referrals: PCP,None [Primary Care Provider] - Additional Instructions: You were seen and evaluated in the ER today secondary to pain to your pelvic region. The pain that you are experiencing appears to be extremely consistent with ovarian cyst pain. You have been given a dose of Toradol IV in the ED to help you with your pain. You can take ibuprofen 600 mg every 6 hours as needed for pain and discomfort. Please make an appointment see your family doctor if your pain should continue for reevaluation. Please return to the ER if you develop any new or concerning symptoms. The following information is given to patients seen in the emergency department who are being discharged to home. This information is to outline your options for follow-up care. We provide all patients seen in our emergency department with a follow-up referral. The need for follow-up, as well as the timing and circumstances, are variable depending upon the specifics of your emergency department visit. If you don't have a primary care physician on staff, we will provide you with a referral. We always advise you to contact your personal physician following an emergency department visit to inform them of the circumstance of the visit and for follow-up with them and/or the need for any referrals to a consulting specialist. The emergency department will also refer you to a specialist when appropriate. This referral assures that you have the opportunity for follow-up care with a specialist. All of these measure are taken in an effort to provide you with optimal care, which includes your follow-up. Under all circumstances we always encourage you to contact your private physician who remains a resource for coordinating your care. When calling for follow-up care, please make the office aware that this follow-up is from your recent emergency room visit. If for any reason you are refused follow-up, please contact the [facility] Emergency Department at and asked to speak to the emergency department charge nurse. [facility] [address] [place] [address] [address] Sepsis Event Note (ED) - Evaluation Sepsis Screening Result: No Definite Risk - Focused Exam Vital Signs: Vital Signs Temp Pulse Resp BP Pulse Ox 04/05/21 22:07 97.4 F 69 20 123/58 L 99 - My Orders Last 24 Hours: My Active Orders 04/05/21 23:06 Sodium Chloride 0.9% [Saline Flush] 10 ml FLUSH ASDIRECTED PRN Sodium Chloride 0.9% [Saline Flush] 2.5 ml FLUSH ASDIRECTED PRN Saline Lock Insert [OM.PC] Stat 04/05/21 23:50 COMPREHENSIVE METABOLIC PN,CMP [CHEM] Stat LIPASE [CHEM] Stat 04/06/21 00:38 Ketorolac [Toradol] 30 mg IVPUSH Q6H STA - Assessment/Plan Last 24 Hours: My Active Orders 04/05/21 23:06 Sodium Chloride 0.9% [Saline Flush] 10 ml FLUSH ASDIRECTED PRN Sodium Chloride 0.9% [Saline Flush] 2.5 ml FLUSH ASDIRECTED PRN Saline Lock Insert [OM.PC] Stat 04/05/21 23:50 COMPREHENSIVE METABOLIC PN,CMP [CHEM] Stat LIPASE [CHEM] Stat 04/06/21 00:38 Ketorolac [Toradol] 30 mg IVPUSH Q6H STA
[2021-04-06 00:46] LABS: BLOOD UREA NITROGEN,BUN 9 mg/dL (7.0-18.0); CARBON DIOXIDE,CO2 22.6 mmol/L (21.0-32.0); CHLORIDE,CL 106 mmol/L (98-107); GLUCOSE RANDOM 124 mg/dL (74-106); LIPASE 82 U/L (73-393); POTASSIUM,K 3.2 mmol/L (3.5-5.1); SODIUM,NA 143 mmol/L (136-145)
== END 2021-04-06 01:03 | disposition home or self-care (01) ==
LOC: MW.ED 21:03
DX: N83.202 Unspecified ovarian cyst, left side (principal)
CPT/HCPCS: 36415; 80053; 81001; 81025; 83690; 85025; 96374; 99284; J1885; J7030

== ENCOUNTER 2021-04-08 01:54 | Emergency (ER) | payer OTHER ==
--- NOTE | 2021-04-08 02:06 | EDM.PDOC ---
ED HPI GENERAL MEDICAL PROBLEM - General Chief Complaint: Abdominal Pain Stated Complaint: abdominal pain Time Seen by Provider: 04/08/21 01:56 - History of Present Illness INITIAL COMMENTS - FREE TEXT/NARRATIVE: History of present illness: [] Patient has a contraceptive ring she removed earlier in the month and on the she began her menstrual period. She always has cramps of the. And sometimes are severe. This time it was more severe heavier and she bled for 6 days. After the period was over she continued to have severe cramps. Starting about the of this month she had severe left lower quadrant isolated unil ateral pain consistent with her prior ruptured ovarian cyst and it is gotten worse since. Patient improved with ketorolac IV. She has been taking Tylenol at home but not ibuprofen. She does have prescription strength ibuprofen at home. Patient has no systemic signs of illness. Movement makes her pain worse. Flexing her hip makes her worse in the left lower quadrant. Review of systems: As per history of present illness and below otherwise all systems reviewed and negative. Past medical history: As per history of present illness and as reviewed below otherwise noncontributory. Surgical history: As per history of present illness and as reviewed below otherwise noncontributory. Social history: No reported history of drug or alcohol abuse. Family history: As per history of present illness and as reviewed below otherwise noncontributory. Physical exam: Constitutional - well developed, well-nourished and in no acute distress HEENT - normocephalic, no evidence of trauma - external nose and mouth normal - no mass in neck and no JVD - mucosae moist EYES - full EOM, PERRL, no icterus - no evidence of inflammation, injection, or drainage Respiratory - no respiratory distress, equal bilateral expansion, lungs clear to auscultation and no abnormal lung sounds Cardiovascular - Regular Rhythm with S1 and S2 appreciated and no murmur, gallop or rub. GI -extremely tender in the left lower quadrant and suprapubic area-abdomen soft without distension or organomegaly - normal bowel sounds - no guard or rebound Musculoskeletal no gross deformity of long bones or joints - no tenderness, swelling or edema Neurologic - Alert and oriented times four - CN II-XII grossly intact - motor sensory and coordination symmetrically normal Psychiatric - appropriate mood and affect with normal thought content Hematologic - No petechiae or purpura - mucosa appropriate color and sclera not pale - normal nail bed color and refill Integument - no rash or evidence of trauma - normal turgor Diagnostics: [] Therapeutics: [] Impression: [] Plan: [] Definitive disposition and diagnosis as appropriate pending reevaluation and review of above. Abdominal Pain Score (Numeric/FACES): 10 - Related Data Allergies Allergy/AdvReac Type Severity Reaction Status Date / Time No Known Allergies Allergy Verified 04/08/21 02:05 Home Meds: Home Meds . [No Known Home Meds] 04/08/21 [History] Past Medical History - Past Health History Medical/Surgical History: Denies Medical/Surgical History HEENT History: Reports: None Cardiovascular History: Reports: None Respiratory History: Reports: None Gastrointestinal History: Reports: None Genitourinary History: Reports: None DIRECTOR OF CLAIMS History: Reports: Other (See Below) Other DIRECTOR OF CLAIMS History: with IUD x 2 years, previous ovarian cyst Musculoskeletal History: Reports: None Neurological History: Reports: None Psychiatric History: Reports: None, Anxiety Endocrine/Metabolic History: Reports: Hypothyroidism, Other (See Below) Other Endocrine/Metabolic History: Lorie's Hematologic History: Reports: None Immunologic History: Reports: None Oncologic (Cancer) History: Reports: None Dermatologic History: Reports: None - Infectious Disease History Infectious Disease History: Reports: None - Past Surgical History Head Surgeries/Procedures: Reports: None HEENT Surgical History: Reports: Tonsillectomy Endocrine Surgical History: Reports: None Social & Family History - Family History Family Medical History: No Pertinent Family History - Caffeine Use Caffeine Use: Reports: None ED ROS GENERAL - Review of Systems Review Of Systems: Comprehensive ROS is negative, except as noted in HPI. ED EXAM, GENERAL - Physical Exam Exam: See Below Free Text/Narrative:: My physical exam is in the HPI Course - Vital Signs Last Recorded V/S: Last Vital Signs Temp 36.4 C 04/08/21 02:01 Pulse 68 04/08/21 03:59 Resp 20 04/08/21 02:01 BP 109/58 L 04/08/21 03:59 Pulse Ox 98 04/08/21 03:59 - Orders/Labs/Meds Orders: Active Orders 24 hr Category Date Time Status Sodium Chloride 0.9% [Normal Saline] 1,000 ml Med 04/08/21 02:45 Active IV ASDIRECTED Sodium Chloride 0.9% [Saline Flush] Med 04/08/21 02:38 Active 10 ml FLUSH ASDIRECTED PRN Sodium Chloride 0.9% [Saline Flush] Med 04/08/21 02:38 Active 2.5 ml FLUSH ASDIRECTED PRN Saline Lock Insert [OM.PC] Stat Oth 04/08/21 02:38 Ordered Medication Orders Sodium Chloride (Normal Saline) 1,000 mls @ 150 mls/hr IV ASDIRECTED LENORA Last Admin: 04/08/21 02:44 Dose: 150 mls/hr Documented by: JORDYN Sodium Chloride (Sodium Chloride 0.9% 10 Ml Syringe) 10 ml FLUSH ASDIRECTED PRN PRN Reason: Keep Vein Open Last Admin: 04/08/21 02:47 Dose: 10 ml Documented by: JORDYN Sodium Chloride (Sodium Chloride 0.9% 2.5 Ml Syringe) 2.5 ml FLUSH ASDIRECTED PRN PRN Reason: Keep Vein Open Last Admin: 04/08/21 02:47 Dose: 2.5 ml Documented by: JORDYN Labs: Laboratory Tests 04/08/21 04/08/21 04/08/21 Range/Units 02:21 02:21 02:21 WBC 4.44 (4.0-11.0) K/uL RBC 4.45 (4.30-5.90) M/uL Hgb 13.1 (12.0-16.0) g/dL Hct 38.9 (36.0-46.0) % MCV 87.4 (80.0-98.0) fL MCH 29.4 (27.0-32.0) pg MCHC 33.7 (31.0-37.0) g/dL RDW Std Deviation 41.0 (28.0-62.0) fl RDW Coeff of Edwardo 13 (11.0-15.0) % Plt Count 155 (150-400) K/uL MPV 11.80 (7.40-12.00) fL Neut % (Auto) 37.0 L (48.0-80.0) % Lymph % (Auto) 53.2 H (16.0-40.0) % [place] % (Auto) 6.8 (0.0-15.0) % Eos % (Auto) 2.5 (0.0-7.0) % Baso % (Auto) 0.5 (0.0-1.5) % Neut # (Auto) 1.7 (1.4-5.7) K/uL Lymph # (Auto) 2.4 (0.6-2.4) K/uL [place] # (Auto) 0.3 (0.0-0.8) K/uL Eos # (Auto) 0.1 (0.0-0.7) K/uL Baso # (Auto) 0.0 (0.0-0.1) K/uL Nucleated RBC % 0.0 /100WBC Nucleated RBCs # 0 K/uL Sodium 140 (136-145) mmol/L Potassium 3.7 (3.5-5.1) mmol/L Chloride 107 (98-107) mmol/L Carbon Dioxide 24.1 (21.0-32.0) mmol/L BUN 12 (7.0-18.0) mg/dL Creatinine 0.9 (0.6-1.0) mg/dL Est Cr Clr Drug Dosing 73.36 mL/min Estimated GFR (MDRD) > 60.0 ml/min Glucose 117 H (74-106) mg/dL Calcium 8.2 L (8.5-10.1) mg/dL HCG, Qual NEGATIVE (NEG) Meds: Medications Generic Name Dose Route Start Last Admin Trade Name Freq PRN Reason Stop Dose Admin Sodium Chloride 1,000 mls @ 150 mls/hr 04/08/21 02:45 04/08/21 02:44 Normal Saline IV 150 mls/hr ASDIRECTED LENORA Administration Sodium Chloride 10 ml 04/08/21 02:38 04/08/21 02:47 Sodium Chloride 0.9% 10 Ml Syringe FLUSH 10 ml ASDIRECTED PRN Administration Keep Vein Open Sodium Chloride 2.5 ml 04/08/21 02:38 04/08/21 02:47 Sodium Chloride 0.9% 2.5 Ml Syringe FLUSH 2.5 ml ASDIRECTED PRN Administration Keep Vein Open Discontinued Medications Generic Name Dose Route Start Last Admin Trade Name Freq PRN Reason Stop Dose Admin Acetaminophen 650 mg 04/08/21 05:09 04/08/21 05:13 Acetaminophen 325 Mg Tab PO 04/08/21 05:10 650 mg NOW ONE Administration Iopamidol 100 ml 04/08/21 04:47 Iopamidol 755 Mg/Ml 500 Ml Multipack Bottle IVPUSH 04/08/21 04:48 ONETIME STA Ketorolac Tromethamine 15 mg 04/08/21 02:38 04/08/21 02:44 Ketorolac 15 Mg/Ml Sdv IVPUSH 04/08/21 02:39 15 mg ONETIME ONE Administration - Re-Assessments/Exams Free Text/Narrative Re-Assessment/Exam: 04/08/21 05:17 CT did not demonstrate any cause for pain ordered ultrasound with ovarian flow study. Plan to tell the patient to use the nonsteroidal anti-inflammatory medicine that she has at home and follow-up with her doctor. She most likely has a muscle strain Departure - Departure Time of Disposition: 05:17 Disposition: Home, Self-Care 01 Condition: Good Clinical Impression: Left lower quadrant pain - Discharge Information Instructions: Abdominal Pain, Adult, [id number] Referrals: PCP,None [Primary Care Provider] - Forms: ED Department Discharge Additional Instructions: There basically is no intra-abdominal or pelvic pathology that can explain your pain. You may have pulled a groin muscle and this takes a long time to heal. You should start anti-inflammatory medicines a half from your prior prescription and take a couple of days off to rest. [facility] - Primary Care [address] [place] [address] [id number] [address] [address] [facility] [address] [place] [id number] [facility] [address] [place] [id number] The following information is given to patients seen in the emergency department who are being discharged to home. This information is to outline your options for follow-up care. We provide all patients seen in our emergency department with a follow-up referral. The need for follow-up, as well as the timing and circumstances, are variable depending upon the specifics of your emergency department visit. If you don't have a primary care physician on staff, we will provide you with a referral. We always advise you to contact your personal physician following an emergency department visit to inform them of the circumstance of the visit and for follow-up with them and/or the need for any referrals to a consulting specialist. The emergency department will also refer you to a specialist when appropriate. This referral assures that you have the opportunity for follow-up care with a specialist. All of these measure are taken in an effort to provide you with optimal care, which includes your follow-up. Under all circumstances we always encourage you to contact your private physician who remains a resource for coordinating your care. When calling for follow-up care, please make the office aware that this follow-up is from your recent emergency room visit. If for any reason you are refused follow-up, please contact the [facility] Emergency Department at and asked to speak to the emergency department charge nurse. Sepsis Event Note (ED) - Evaluation Sepsis Screening Result: No Definite Risk - Focused Exam Vital Signs: Vital Signs Temp Pulse Resp BP Pulse Ox 04/08/21 03:59 68 109/58 L 98 04/08/21 02:01 36.4 C 84 20 136/81 97 - My Orders Last 24 Hours: My Active Orders 04/08/21 02:38 Sodium Chloride 0.9% [Saline Flush] 10 ml FLUSH ASDIRECTED PRN Sodium Chloride 0.9% [Saline Flush] 2.5 ml FLUSH ASDIRECTED PRN Saline Lock Insert [OM.PC] Stat 04/08/21 02:45 Sodium Chloride 0.9% [Normal Saline] 1,000 ml IV ASDIRECTED - Assessment/Plan Last 24 Hours: My Active Orders 04/08/21 02:38 Sodium Chloride 0.9% [Saline Flush] 10 ml FLUSH ASDIRECTED PRN Sodium Chloride 0.9% [Saline Flush] 2.5 ml FLUSH ASDIRECTED PRN Saline Lock Insert [OM.PC] Stat 04/08/21 02:45 Sodium Chloride 0.9% [Normal Saline] 1,000 ml IV ASDIRECTED
[2021-04-08] MEDS ORDERED: Sodium Chloride 0.9% 10 ML Syringe FLUSH PRN (02:38)
[2021-04-08] MEDS ORDERED: Ketorolac 15 MG/ML SDV IVPUSH ONE (02:38)
[2021-04-08] MEDS ORDERED: Sodium Chloride 0.9% 2.5 ML Syringe FLUSH PRN (02:38)
[2021-04-08] MEDS ORDERED: Sodium Chloride 0.9% 1,000 ML IV SCH (02:45)
[2021-04-08 02:48] LABS: BLOOD UREA NITROGEN,BUN 12 mg/dL (7.0-18.0); CARBON DIOXIDE,CO2 24.1 mmol/L (21.0-32.0); CHLORIDE,CL 107 mmol/L (98-107); GLUCOSE RANDOM 117 mg/dL (74-106); POTASSIUM,K 3.7 mmol/L (3.5-5.1); SODIUM,NA 140 mmol/L (136-145)
--- NOTE | 2021-04-08 04:18 | US ---
INDICATION: Sudden onset left lower quadrant pain TECHNIQUE: Ultrasound pelvis transvaginal. Endovaginal imaging was performed to better visualize the endometrium and ovaries. Real-time marion scale sonographic images with spectral and color Doppler imaging of the ovaries were obtained. COMPARISON: None FINDINGS: Uterus: 7.2 x 4.3 x 2.5 cm. Normal echotexture of the myometrium noted with no masses are seen. Endometrium: 3 mm. No sign of endometrial mass or fluid present. Right ovary: 3.1 x 2.6 x 1.7 cm with volume estimate of 7.4 mL. The right ovary is normal in appearance and echotexture. Arterial blood flow seen within the right ovary. Left ovary: 1.7 x 1.7 x 2.3 cm with estimated volume of 3.5 mL. The left ovary is normal in appearance and echotexture. Arterial blood flow seen within the left ovary. Cul-de-sac: No significant ascites noted. IMPRESSION: 1. Unremarkable pelvic ultrasound. Dictated by Satya Domingo MD @ 04/08/2021 4:15:40 AM Dictated by: Satya Domingo MD @ 04/08/2021 04:15:43 (Electronically Signed)
[2021-04-08] MEDS ORDERED: Iopamidol 755 MG/ML 500 ML Multipack Bottle IVPUSH STA (04:47)
--- NOTE | 2021-04-08 05:08 | CT ---
INDICATION: Severe left lower quadrant pain TECHNIQUE: CT Abdomen and pelvis with i.v. contrast. Coronal and sagittal reformats were obtained. CONTRAST: 100 mL Isovue 370 COMPARISON: None FINDINGS: Lower chest: Unremarkable. Liver: Unremarkable. Spleen: Unremarkable. Pancreas: Unremarkable. Gallbladder: Unremarkable. Kidney: There is a faint ill-defined density along the right posterior aspect of the bladder which may be due to a ureteral check with excreted contrast. Neck with kidney contrast Adrenal: Unremarkable. Bowel: Unremarkable. The appendix is not identified. Vascular: Unremarkable. Lymph: Unremarkable. Peritoneum: Unremarkable. No pneumoperitoneum is seen. No significant ascites is noted. Pelvis: See above. Soft tissue: Unremarkable. Bone: Unremarkable for age. IMPRESSION: 1. Unremarkable with no CT correlate for the patient`s symptoms seen. Dictated by Satya Domingo MD @ 04/08/2021 5:06:15 AM Prelim Report By Dr. Satya Domingo @ 04/08/2021 5:06:17 AM ADDENDUM The kidney findings were mistranscribed and should read "There is a faint ill-defined density along the right posterior aspect of the bladder which may be due to a ureteral jet with excreted contrast. Excreted contrast alson noted in the renal calyces and proximal ureters which limits evaluation for renal stones." Please note that all CT scans at this facility use dose modulation, iterative reconstruction, and/or weight-based dosing when appropriate to reduce radiation dose to as low as reasonably achievable. Dictated by: MD @ 04/08/2021 05:15:50 (Electronically Signed)
[2021-04-08] MEDS ORDERED: Acetaminophen 325 MG Tab PO ONE (05:09)
[2021-04-08 05:30] VITALS: BP 125/87; PULSE 73
== END 2021-04-08 05:29 | disposition home or self-care (01) ==
LOC: MW.ED 01:54
DX: R10.32 Left lower quadrant pain (principal); E03.9 Hypothyroidism, unspecified
CPT/HCPCS: 36415; 74177; 76856; 80048; 84703; 85025; 96374; 99284; A9270; J1885; J7030; 76857

== ENCOUNTER 2022-02-24 06:00 | Day surgery (SDC) | payer OTHER ==
[2022-02-24] MEDS ORDERED: fentaNYL 250 MCG/5 ML SDV ONE (09:24)
[2022-02-24] MEDS ORDERED: Propofol 200 MG/20 ML SDV ONE ×2 (09:24→12:09)
[2022-02-24] MEDS ORDERED: fentaNYL 100 MCG/2 ML SDV ONE (10:59)
[2022-02-24] MEDS ORDERED: Midazolam 1 MG/ML 2 ML SDV ONE (10:59)
[2022-02-24] MEDS ORDERED: Lidocaine 2% 11 ML Jelly Filled Syringe ONE ×2 (11:15→11:16)
[2022-02-24] MEDS ORDERED: Bupivacaine 0.5% 30 ML SDV ONE ×2 (11:15→11:16)
[2022-02-24] MEDS ORDERED: cefOXitin 1 GM Vial IV ONE (11:45)
[2022-02-24] MEDS ORDERED: Phenylephrine HCl In 0.9% NaCl 1 MG/10 ML Vial ONE (12:23)
[2022-02-24] MEDS ORDERED: Lactated Ringers 1,000 ML IV ONE (14:45)
== END 2022-02-24 14:17 ==
LOC: MW.SDS 06:00
PROVIDERS: ATTEND Surgery
DX: K64.4 Residual hemorrhoidal skin tags (principal); F41.9 Anxiety disorder, unspecified; F32.A Depression, unspecified; E03.9 Hypothyroidism, unspecified; F17.200 Nicotine dependence, unspecified, uncomplicated; Z79.899 Other long term (current) drug therapy; Z98.890 Other specified postprocedural states
CPT/HCPCS: 46250; 81025; A9270; J0694; J2250; J2704; J3010; J3490; J7120; 00902

== ENCOUNTER 2023-02-12 19:58 | Emergency (ER) | payer OTHER ==
[2023-02-12] MEDS ORDERED: Sodium Chloride 0.9% 10 ML Syringe FLUSH PRN (20:35)
[2023-02-12] MEDS ORDERED: Sodium Chloride 0.9% 2.5 ML Syringe FLUSH PRN (20:35)
[2023-02-12] MEDS ORDERED: Sodium Chloride 0.9% 1,000 ML IV STA (20:36)
[2023-02-12] MEDS ORDERED: Ondansetron 4 MG/2 ML SDV IVPUSH STA (20:36)
[2023-02-12] MEDS ORDERED: Ketorolac 30 MG/ML SDV IVPUSH STA (20:36)
[2023-02-12 21:13] LABS: BASOPHILS PERCENT AUTO 0.3 % (0.0-1.5); EOSINOPHILS ABSOLUTE AUTO 0.1 K/uL (0.0-0.7); EOSINOPHILS PERCENT AUTO 0.8 % (0.0-7.0); HEMATOCRIT 38.6 % (36.0-46.0); LYMPHOCYTES ABSOLUTE AUTO 2.5 K/uL (0.6-2.4); MEAN CORPUSCULAR HEMOGLOBIN 29.3 pg (27.0-32.0); MEAN CORPUSCULAR HGB CONC 33.7 g/dL (31.0-37.0); MEAN CORPUSCULAR VOLUME 86.9 fL (80.0-98.0); MONOCYTES ABSOLUTE AUTO 0.3 K/uL (0.0-0.8); MONOCYTES PERCENT AUTO 4.1 % (0.0-15.0); NEUTROPHILS ABSOLUTE AUTO 4.5 K/uL (1.4-5.7); NEUTROPHILS PERCENT AUTO 60.8 % (48.0-80.0); NRBC ABSOLUTE 0 K/uL; PLATELET COUNT,PLT 187 K/uL (150-400); RED BLOOD CELL COUNT 4.44 M/uL (4.30-5.90); WHITE BLOOD CELL COUNT,WBC 7.47 K/uL (4.0-11.0)
[2023-02-12 21:28] LABS: A/G RATIO 1.3 (0.9-1.6); ALBUMIN 4.2 g/dL (3.4-5.0); BILIRUBIN TOTAL 0.2 mg/dL (0.2-1.0); CALCIUM 8.3 mg/dL (8.5-10.1); CARBON DIOXIDE,CO2 23.6 mmol/L (21.0-32.0); CREATININE 0.8 mg/dL (0.6-1.0); EST CRCL DRUG DOSING (CG) 81.12 mL/min; POTASSIUM,K 3.2 mmol/L (3.5-5.1); PROTEIN TOTAL,TP 7.4 g/dL (6.4-8.2)
[2023-02-12 21:34] LABS: CANDIDA DNA PROBE NEGATIVE (NEGATIVE); GARDNERELLA DNA PROBE NEGATIVE (NEGATIVE); TRICHOMONAS DNA PROBE NEGATIVE (NEGATIVE)
[2023-02-12 22:04] LABS: APPEARANCE,URINE CLEAR; BILIRUBIN,URINE NEGATIVE (NEGATIVE); COLOR,URINE YELLOW; GLUCOSE,URINE NEGATIVE (NEGATIVE); KETONES,URINE 15 mg/dL (NEGATIVE); LEUKOCYTE ESTERASE,URINE NEGATIVE (NEGATIVE); NITRITE,URINE NEGATIVE (NEGATIVE); OCCULT BLOOD,URINE TRACE-INTACT (NEGATIVE); PROTEIN,URINE NEGATIVE (NEGATIVE); UROBILINOGEN,URINE 0.2 EU/dL (<2.0)
[2023-02-12 22:13] LABS: BACTERIA,URINE RARE (NEGATIVE); EPITHELIAL CELLS,URINE FEW (NONE-FEW); RBC,URINE 0-1 (0-2/HPF); WBC,URINE 0-1 (0-5/HPF)
[2023-02-12 22:13] LABS: C. TRACHOMATIS BY PCR NOT DETECTED; N. GONORRHOEAE BY PCR NOT DETECTED
[2023-02-12 23:18] VITALS: BP 126/70; PULSE 89
== END 2023-02-12 23:18 | disposition home or self-care (01) ==
LOC: MW.ED 19:58
DX: R10.32 Left lower quadrant pain (principal); F17.210 Nicotine dependence, cigarettes, uncomplicated
CPT/HCPCS: 36415; 76830; 80053; 81001; 84703; 85025; 87480; 87491; 87510; 87591; 87660; 96361; 96374; 96375; 99284; J1885; J2405; J3490; J7030